=== PATIENT | male | born 1965 | race African-American/Black ===

== ENCOUNTER 2019-11-16 09:51 | Inpatient (IN) | payer OTHER ==
--- NOTE | 2019-11-16 10:12 | BHS.RME ---
Substance Use & Tx History - Substance Use History Alcohol Substance amount: 3 40 oz Frequency of use: Daily Substance route: Oral Date of Last Use: 11/15/19 (started age 16) Nicotine Substance amount: 1 pack Frequency of use: Daily Substance route: Smoking Date of Last Use: 11/16/19 (started age 16) Physical/Psych/Mental Status - Behavior General Behavior: Increased activity (restlessness, agitation) Eye Contact: Normal - Cooperativeness Cooperativeness: Cooperative - Thinking Thought Processes: Tight, Logical, Goal Directed - Physical Health Problems Is patient presently having any pain?: No Does patient presently have any injuries (include location): No Does patient currently have a fever: No Is patient : No CIWA Nausea/Vomitin Muscle Tremors: 4-Moderate,w/Arms Extend Anxiety: 3 Agitation: 3 Paroxysmal Sweats: 1-Minimal Palms Moist Orientation: 1-Uncertain about Date Tacttile Disturbances: 0-None Auditory Disturbances: 0-None Visual Disturbances: 0-None Headache: 0-None Present CIWA-Ar Total Score: 15
--- NOTE | 2019-11-16 10:14 | BHS.RME ---
Substance Use & Tx History - Substance Use History Alcohol Substance amount: 3 40 ozbeers Frequency of use: Daily Substance route: Oral Date of Last Use: 11/15/19 Nicotine Substance amount: 1 pack Frequency of use: Daily Substance route: Smoking Date of Last Use: 11/16/19 Physical/Psych/Mental Status - Behavior General Behavior: Increased activity (restlessness, agitation) Eye Contact: Normal - Thinking Thought Processes: Tight, Logical, Goal Directed - Physical Health Problems Is patient presently having any pain?: No Does patient presently have any injuries (include location): No Does patient currently have a fever: No Is patient : No CIWA Nausea/Vomitin Muscle Tremors: 4-Moderate,w/Arms Extend Anxiety: 3 Agitation: 3 Paroxysmal Sweats: 1-Minimal Palms Moist Orientation: 1-Uncertain about Date Tacttile Disturbances: 0-None Auditory Disturbances: 0-None Visual Disturbances: 0-None Headache: 0-None Present CIWA-Ar Total Score: 15
[2019-11-16 10:30] VITALS: BMI 26.2
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
[2019-11-16] MEDS ORDERED: MAG HYDROX/AL HYDROX/SIMETH 30 ML UNIT-DOSE CUP PO PRN (10:35)
[2019-11-16] MEDS ORDERED: BISMUTH SUBSALICYLATE 524 MG/30 ML UD PO PRN (10:35)
[2019-11-16] MEDS ORDERED: chlordiazePOXIDE HCL 25 MG CAPSULE PO PRN (10:35)
[2019-11-16] MEDS ORDERED: ACETAMINOPHEN 325 MG TABLET (FP) PO PRN ×2 (10:35)
[2019-11-16] MEDS ORDERED: MAGNESIUM CITRATE 300 ML BOTTLE PO PRN (10:35)
[2019-11-16] MEDS ORDERED: MENTHOL/PHENOL 1 EACH UD MM PRN (10:35)
[2019-11-16] MEDS ORDERED: MAGNESIUM HYDROX 2400MG/30ML ORAL SUSPENSION 30 ML CUP PO PRN (10:35)
[2019-11-16] MEDS ORDERED: NICOTINE POLACRILEX 2 MG GUM BUC PRN (10:35)
[2019-11-16] MEDS ORDERED: ONDANSETRON *ODT* 4 MG TABLET SL PRN (10:35)
[2019-11-16] MEDS ORDERED: IBUPROFEN 400 MG TABLET (FP) PO PRN (10:35)
[2019-11-16] MEDS ORDERED: PATIENT'S OWN MEDICATION (NON-FORMULARY) (Lisinopril/Hydrochlorothiazide [Lisinopril-Hctz PO SCH (11:15)
[2019-11-16] MEDS ORDERED: hydrOXYzine PAMOATE 25 MG CAPSULE (FP) PO PRN (12:17)
[2019-11-16] MEDS: NICOTINE 21 MG/24 HOURS TOPICAL PATCH TD SCH (12:45)
[2019-11-16] MEDS: chlordiazePOXIDE HCL 25 MG CAPSULE PO SCH ×3 (12:45→22:34)
--- NOTE | 2019-11-16 12:56 | EKG ---
Test Reason : Blood Pressure : / mmHG Vent. Rate : 091 BPM Atrial Rate : 091 BPM P-R Int : 160 ms QRS Dur : 076 ms QT Int : 386 ms P-R-T Axes : 055 000 042 degrees QTc Int : 474 ms NORMAL SINUS RHYTHM INFERIOR INFARCT , AGE UNDETERMINED ABNORMAL ECG NO PREVIOUS ECGS AVAILABLE Confirmed by MD Carney Edward ([id number]) on 11/16/2019 12:55:51 PM Referred By: Confirmed By:Christopher Carney MD
[2019-11-16] MEDS ORDERED: hydrOXYzine PAMOATE 25 MG CAPSULE (FP) PO SCH (14:00)
[2019-11-16] MEDS: LISINOPRIL 20 MG TABLET PO SCH (14:47)
[2019-11-16] MEDS: HYDROCHLOROTHIAZIDE 12.5 MG CAPSULE (FP) PO SCH (14:47)
[2019-11-16] MEDS: NIFEdipine E.R 60 MG TABLET PO SCH (14:47)
[2019-11-16] MEDS: prednisoLONE ACETATE 1% OPHTH SUSP 5 ML BOTTLE OD SCH (14:51)
[2019-11-16 14:54] LABS: HEMATOCRIT 38.5 % (35.4-49); HEMOGLOBIN 13.1 GM/dL (11.7-16.9); MCH 31.8 pg (25.7-33.7); MCHC 34.1 g/dl (32.0-35.9); MEAN CELL VOLUME 93.3 fl (80-96); MEAN PLT VOLUME 8.2 fl (7.5-11.1); PLATELET COUNT 276 K/MM3 (134-434); RBC 4.13 M/mm3 (4.00-5.60); RDW 12.8 % (11.9-15.9); WHITE BLOOD COUNT 6.3 K/mm3 (4.0-10.0)
[2019-11-16] MEDS: CYCLOPENTOLATE 2% OPHTH SOLN 2 ML BOTTLE OD SCH ×3 (15:05→23:18)
[2019-11-16 15:06] LABS: ALBUMIN 3.9 g/dl (3.4-5.0); BILIRUBIN,TOTAL 0.6 mg/dL (0.2-1); BLOOD UREA NITROGEN 12.4 mg/dL (7-18); CALCIUM 8.8 mg/dL (8.5-10.1); CREATININE 1.3 mg/dL (0.55-1.3); POTASSIUM 3.6 mmol/L (3.5-5.1); TOT PROT 7.6 g/dl (6.4-8.2)
[2019-11-16] MEDS ORDERED: LISINOPRIL 20 MG TABLET PO ONE (20:03)
[2019-11-16] MEDS: ATORVASTATIN CA 10 MG TABLET (FP) PO SCH (22:34)
[2019-11-16] MEDS: MELATONIN 5 MG TABLETS PO SCH (22:34)
[2019-11-16] MEDS: THIAMINE HCL 100 MG TABLET (FP) PO SCH (22:34)
[2019-11-17] MEDS: chlordiazePOXIDE HCL 25 MG CAPSULE PO SCH ×4 (05:28→22:36)
[2019-11-17] MEDS: LISINOPRIL 20 MG TABLET PO SCH (10:34)
[2019-11-17] MEDS: NIFEdipine E.R 60 MG TABLET PO SCH (10:34)
[2019-11-17] MEDS: HYDROCHLOROTHIAZIDE 12.5 MG CAPSULE (FP) PO SCH (10:34)
[2019-11-17] MEDS: CYCLOPENTOLATE 2% OPHTH SOLN 2 ML BOTTLE OD SCH ×4 (10:35→22:36)
[2019-11-17] MEDS: NICOTINE 21 MG/24 HOURS TOPICAL PATCH TD SCH (10:36)
[2019-11-17] MEDS: prednisoLONE ACETATE 1% OPHTH SUSP 5 ML BOTTLE OD SCH (10:36)
[2019-11-17] MEDS: PRENATAL VITAMINS W/ FOLIC ACID TABLET (FP) PO SCH (10:37)
--- NOTE | 2019-11-17 11:59 | PN ---
S CIWA - CIWA Score Nausea/Vomitin-No Nausea/No Vomiting Muscle Tremors: 2 Anxiety: 2 Agitation: 2 Paroxysmal Sweats: 3 Orientation: 0-Oriented Tacttile Disturbances: 0-None Auditory Disturbances: 0-None Visual Disturbances: 0-None Headache: 0-None Present CIWA-Ar Total Score: 9 S Progress Note (SOAP) Subjective: sweats headaches body aches interrupted sleep Objective: 11/17/19 11:59 Vital Signs Temperature 97.3 F L 11/17/19 08:46 Pulse Rate 78 11/17/19 08:46 Respiratory Rate 18 11/17/19 08:46 Blood Pressure 145/78 11/17/19 08:46 O2 Sat by Pulse Oximetry (%) 98 11/17/19 05:22 Laboratory Tests 11/16/19 11/16/19 11/16/19 09:55 09:55 09:55 WBC 6.3 RBC 4.13 Hgb 13.1 Hct 38.5 MCV 93.3 MCH 31.8 MCHC 34.1 RDW 12.8 Plt Count 276 MPV 8.2 Sodium 139 Potassium 3.6 Chloride 104 Carbon Dioxide 28 Anion Gap 7 L BUN 12.4 Creatinine 1.3 Est GFR (CKD-EPI)AfAm 70.69 Est GFR (CKD-EPI)NonAf 60.99 Random Glucose 88 Calcium 8.8 Total Bilirubin 0.6 AST 38 H ALT 36 Alkaline Phosphatase 67 Total Protein 7.6 Albumin 3.9 Syphilis Serology Non-reactive labs noted aaox3 ambulating no acute distress Assessment: 11/17/19 11:59 withdrawals Plan: continue detox
[2019-11-17] MEDS ORDERED: FLU VACCINE (FLULAVAL) PF 60 MCG/0.5 ML SYRINGE 2020-2021 IM ONE (12:00)
[2019-11-17] MEDS ORDERED: prednisoLONE ACETATE 1% OPHTH SUSP 5 ML BOTTLE OD SCH (14:00)
[2019-11-17] MEDS: prednisoLONE ACETATE 1% OPHTH SUSP 5 ML BOTTLE OD PRN ×2 (15:27→22:36)
[2019-11-17] MEDS: THIAMINE HCL 100 MG TABLET (FP) PO SCH (22:35)
[2019-11-17] MEDS: MELATONIN 5 MG TABLETS PO SCH (22:36)
[2019-11-17] MEDS: ATORVASTATIN CA 10 MG TABLET (FP) PO SCH (22:36)
[2019-11-18] MEDS: chlordiazePOXIDE HCL 25 MG CAPSULE PO SCH ×4 (05:39→22:49)
[2019-11-18] MEDS: METHOCARBAMOL 500 MG TABLET PO PRN ×2 (05:39→14:50)
[2019-11-18] MEDS: PRENATAL VITAMINS W/ FOLIC ACID TABLET (FP) PO SCH (10:32)
[2019-11-18] MEDS: CYCLOPENTOLATE 2% OPHTH SOLN 2 ML BOTTLE OD SCH ×4 (10:33→22:50)
[2019-11-18] MEDS: NIFEdipine E.R 60 MG TABLET PO SCH (10:33)
[2019-11-18] MEDS: HYDROCHLOROTHIAZIDE 12.5 MG CAPSULE (FP) PO SCH (10:33)
[2019-11-18] MEDS: LISINOPRIL 20 MG TABLET PO SCH (10:33)
[2019-11-18] MEDS: prednisoLONE ACETATE 1% OPHTH SUSP 5 ML BOTTLE OD PRN ×3 (10:34→22:50)
[2019-11-18] MEDS: NICOTINE 21 MG/24 HOURS TOPICAL PATCH TD SCH (10:34)
--- NOTE | 2019-11-18 12:42 | PN ---
S CIWA - CIWA Score Nausea/Vomitin Muscle Tremors: 2 Anxiety: 2 Agitation: 2 Paroxysmal Sweats: No Perspiration Orientation: 0-Oriented Tacttile Disturbances: 0-None Auditory Disturbances: 0-None Visual Disturbances: 0-None Headache: 1-Very Mild CIWA-Ar Total Score: 9 BHS Progress Note (SOAP) Subjective: alert,irritable,anxious,interrupted sleep,aching pain,nausea,aching pain Objective: 11/18/19 12:52 Vital Signs Temperature 96.9 F L 11/18/19 08:55 Pulse Rate 99 H 11/18/19 08:55 Respiratory Rate 18 11/18/19 08:55 Blood Pressure 128/81 11/18/19 08:55 O2 Sat by Pulse Oximetry (%) 99 11/18/19 08:55 Laboratory Last Values WBC 6.3 K/mm3 (4.0-10.0) 11/16/19 09:55 RBC 4.13 M/mm3 (4.00-5.60) 11/16/19 09:55 Hgb 13.1 GM/dL (11.7-16.9) 11/16/19 09:55 Hct 38.5 % (35.4-49) 11/16/19 09:55 MCV 93.3 fl (80-96) 11/16/19 09:55 MCH 31.8 pg (25.7-33.7) 11/16/19 09:55 MCHC 34.1 g/dl (32.0-35.9) 11/16/19 09:55 RDW 12.8 % (11.9-15.9) 11/16/19 09:55 Plt Count 276 K/MM3 (134-434) 11/16/19 09:55 MPV 8.2 fl (7.5-11.1) 11/16/19 09:55 Sodium 139 mmol/L (136-145) 11/16/19 09:55 Potassium 3.6 mmol/L (3.5-5.1) 11/16/19 09:55 Chloride 104 mmol/L (98-107) 11/16/19 09:55 Carbon Dioxide 28 mmol/L (21-32) 11/16/19 09:55 Anion Gap 7 MMOL/L (8-16) L 09/30/20 09:55 BUN 12.4 mg/dL (7-18) 11/16/19 09:55 Creatinine 1.3 mg/dL (0.55-1.3) 11/16/19 09:55 Est GFR (CKD-EPI)AfAm 70.69 11/16/19 09:55 Est GFR (CKD-EPI)NonAf 60.99 11/16/19 09:55 Random Glucose 88 mg/dL (74-106) 11/16/19 09:55 Calcium 8.8 mg/dL (8.5-10.1) 11/16/19 09:55 Total Bilirubin 0.6 mg/dL (0.2-1) 11/16/19 09:55 AST 38 U/L (15-37) H 11/16/19 09:55 ALT 36 U/L (13-61) 11/16/19 09:55 Alkaline Phosphatase 67 U/L (45-117) 11/16/19 09:55 Total Protein 7.6 g/dl (6.4-8.2) 11/16/19 09:55 Albumin 3.9 g/dl (3.4-5.0) 11/16/19 09:55 Syphilis Serology Non-reactive (NONREACTIVE) 11/16/19 09:55 COVID-19 ([facility]ILL[facility]) Not detected (Not Detected) 11/16/19 13:20 Assessment: 11/18/19 12:58 withdrawal symptom Plan: continue detox detox librium regimen
[2019-11-18] MEDS ORDERED: diphenhydrAMINE HCL 50 MG CAPSULE PO ONE (14:25)
--- NOTE | 2019-11-18 14:33 | PN ---
[facility] Progress Note Note: patient complained of itching ,chronic for months,no rash,no sob,no swelling of face or lip blindness of right eye sitting comfortable in chair use to take medication by his medical provider benadryl 50 mgs po now then 25 mgs po q 6 hrs prn for itching for 48 hrs d/c vistaril close motoring patient requested for the result of covid 19 test,i addressed with the patient that the test is negative ,patient understood closed monitoring continue detox librium regimen
[2019-11-18] MEDS ORDERED: diphenhydrAMINE HCL 25 MG CAPSULE (FP) PO ONE (14:38)
[2019-11-18] MEDS: MELATONIN 5 MG TABLETS PO SCH (22:49)
[2019-11-18] MEDS: THIAMINE HCL 100 MG TABLET (FP) PO SCH (22:49)
[2019-11-18] MEDS: ATORVASTATIN CA 10 MG TABLET (FP) PO SCH (22:49)
[2019-11-18] MEDS: diphenhydrAMINE HCL 25 MG CAPSULE (FP) PO PRN (22:53)
[2019-11-19] MEDS ORDERED: chlordiazePOXIDE HCL 10 MG CAPSULE PO PRN
[2019-11-19] MEDS: chlordiazePOXIDE HCL 10 MG CAPSULE PO SCH ×4 (06:14→22:39)
[2019-11-19] MEDS: NICOTINE 21 MG/24 HOURS TOPICAL PATCH TD SCH (10:34)
[2019-11-19] MEDS: NIFEdipine E.R 60 MG TABLET PO SCH (10:34)
[2019-11-19] MEDS: LISINOPRIL 20 MG TABLET PO SCH (10:34)
[2019-11-19] MEDS: PRENATAL VITAMINS W/ FOLIC ACID TABLET (FP) PO SCH (10:34)
[2019-11-19] MEDS: CYCLOPENTOLATE 2% OPHTH SOLN 2 ML BOTTLE OD SCH ×4 (10:36→22:39)
[2019-11-19] MEDS: prednisoLONE ACETATE 1% OPHTH SUSP 5 ML BOTTLE OD PRN ×3 (10:38→22:39)
[2019-11-19] MEDS: HYDROCHLOROTHIAZIDE 12.5 MG CAPSULE (FP) PO SCH (14:14)
--- NOTE | 2019-11-19 16:48 | PN ---
S CIWA - CIWA Score Nausea/Vomitin (Constipation.) Muscle Tremors: None Anxiety: 2 Agitation: 2 Paroxysmal Sweats: 2 Orientation: 0-Oriented Tacttile Disturbances: 1-Very Mild Itch/Numbness Auditory Disturbances: 0-None Visual Disturbances: 0-None Headache: 0-None Present CIWA-Ar Total Score: 9 BHS Progress Note (SOAP) Subjective: Anxious, Tremors, Constipation (chronic issue). Objective: Patient A & O X 3, Observed Ambulating on Detox Unit Unassisted. In No Acute Distress. 11/19/19 16:47 Vital Signs Temperature 98.2 F 11/19/19 12:38 Pulse Rate 99 H 11/19/19 12:38 Respiratory Rate 18 11/19/19 12:38 Blood Pressure 135/87 11/19/19 12:38 O2 Sat by Pulse Oximetry (%) 100 11/19/19 12:38 Laboratory Tests 11/16/19 11/16/19 11/16/19 09:55 09:55 09:55 WBC 6.3 RBC 4.13 Hgb 13.1 Hct 38.5 MCV 93.3 MCH 31.8 MCHC 34.1 RDW 12.8 Plt Count 276 MPV 8.2 Sodium 139 Potassium 3.6 Chloride 104 Carbon Dioxide 28 Anion Gap 7 L BUN 12.4 Creatinine 1.3 Est GFR (CKD-EPI)AfAm 70.69 Est GFR (CKD-EPI)NonAf 60.99 Random Glucose 88 Calcium 8.8 Total Bilirubin 0.6 AST 38 H ALT 36 Alkaline Phosphatase 67 Total Protein 7.6 Albumin 3.9 Syphilis Serology Non-reactive COVID-19 ([facility]ILLY) 11/16/19 13:20 WBC RBC Hgb Hct MCV MCH MCHC RDW Plt Count MPV Sodium Potassium Chloride Carbon Dioxide Anion Gap BUN Creatinine Est GFR (CKD-EPI)AfAm Est GFR (CKD-EPI)NonAf Random Glucose Calcium Total Bilirubin AST ALT Alkaline Phosphatase Total Protein Albumin Syphilis Serology COVID-19 ([facility]) Not detected Lab Results noted. Assessment: 11/19/19 16:47 WITHDRAWAL SYMPTOMS. Plan: Continue Detox. Increase Daily Oral Water Intake. PRN MOM PO recommended for relief of Constipation.
[2019-11-19] MEDS: diphenhydrAMINE HCL 25 MG CAPSULE (FP) PO PRN (17:28)
[2019-11-19] MEDS: ATORVASTATIN CA 10 MG TABLET (FP) PO SCH (22:39)
[2019-11-19] MEDS: MELATONIN 5 MG TABLETS PO SCH (22:40)
[2019-11-19] MEDS: THIAMINE HCL 100 MG TABLET (FP) PO SCH (22:40)
[2019-11-20] MEDS ORDERED: chlordiazePOXIDE HCL 10 MG CAPSULE PO SCH (05:00)
[2019-11-20] MEDS: prednisoLONE ACETATE 1% OPHTH SUSP 5 ML BOTTLE OD PRN (06:05)
[2019-11-20] MEDS: LISINOPRIL 20 MG TABLET PO SCH (10:44)
[2019-11-20] MEDS: HYDROCHLOROTHIAZIDE 12.5 MG CAPSULE (FP) PO SCH (10:44)
[2019-11-20] MEDS: PRENATAL VITAMINS W/ FOLIC ACID TABLET (FP) PO SCH (10:44)
[2019-11-20] MEDS: NICOTINE 21 MG/24 HOURS TOPICAL PATCH TD SCH (10:44)
[2019-11-20] MEDS: NIFEdipine E.R 60 MG TABLET PO SCH (10:44)
[2019-11-20] MEDS: CYCLOPENTOLATE 2% OPHTH SOLN 2 ML BOTTLE OD SCH (10:45)
[2019-11-20 13:18] VITALS: BP 140/94; PULSE 107; TEMP 97.8
--- NOTE | 2019-11-20 15:14 | DS ---
[facility] Detox Discharge Summary Admission Date: 11/16/19 Discharge Date: 11/20/19 - History Present History: Alcohol Dependence Additional Comments: Patient demanded to leave stating too much chaos on the floor and that he is ready for discharge. Patient denies any withdrawal sxs and said that if he has any problems, he will call 911. Patient said [facility] will [facility]. Patient instructed to follow up with PCP within 1 week. Patient agreed to early discharge instead of leaving AMA. Patient discharged in stable condition. Pertinent Past History: HTN HLD Blind in right eye Alcohol dependence Nicotine dependence - Physical Exam Results Vital Signs: Vital Signs Temperature 97.8 F 11/20/19 12:45 Pulse Rate 107 H 11/20/19 12:45 Respiratory Rate 18 11/20/19 12:45 Blood Pressure 140/94 11/20/19 12:45 O2 Sat by Pulse Oximetry (%) 99 11/20/19 12:45 Pertinent Admission Physical Exam Findings: Withdrawal sxs Laboratory Tests 11/16/19 11/16/19 11/16/19 09:55 09:55 09:55 WBC 6.3 RBC 4.13 Hgb 13.1 Hct 38.5 MCV 93.3 MCH 31.8 MCHC 34.1 RDW 12.8 Plt Count 276 MPV 8.2 Sodium 139 Potassium 3.6 Chloride 104 Carbon Dioxide 28 Anion Gap 7 L BUN 12.4 Creatinine 1.3 Est GFR (CKD-EPI)AfAm 70.69 Est GFR (CKD-EPI)NonAf 60.99 Random Glucose 88 Calcium 8.8 Total Bilirubin 0.6 AST 38 H ALT 36 Alkaline Phosphatase 67 Total Protein 7.6 Albumin 3.9 Syphilis Serology Non-reactive COVID-19 ([facility]ILLY) 11/16/19 13:20 WBC RBC Hgb Hct MCV MCH MCHC RDW Plt Count MPV Sodium Potassium Chloride Carbon Dioxide Anion Gap BUN Creatinine Est GFR (CKD-EPI)AfAm Est GFR (CKD-EPI)NonAf Random Glucose Calcium Total Bilirubin AST ALT Alkaline Phosphatase Total Protein Albumin Syphilis Serology COVID-19 ([facility]ILLY) Not detected Labs reviewed - Treatment Hospital Course: Detox Protocol Followed, Detoxed Safely, Responded well, Discharged Condition Good - Medication Discharge Medications: Ambulatory Orders Cyclopentolate 2% Ophth Soln [Cyclogyl 2% -] 2 ml OD ASDIR 11/16/19 Lisinopril/Hydrochlorothiazide [Lisinopril-Hctz 20-12.5 mg Tab] 1 each PO DAILY 11/16/19 Nifedipine [Procardia Xl] 60 mg PO DAILY 11/16/19 Prednisolone 1% Ophthalmic [Pred Forte 1% -] 5 ml OP DAILY 11/16/19 Simvastatin [Zocor] 20 mg PO HS 11/16/19 - Diagnosis (1) Alcohol dependence with withdrawal, uncomplicated Status: Acute (2) Nicotine dependence Status: Chronic Qualifiers: Nicotine product type: cigarettes Substance use status: uncomplicated Qualified Code(s): F17.210 - Nicotine dependence, cigarettes, uncomplicated (3) Blind right eye Status: Chronic (4) Essential (primary) hypertension Status: Chronic (5) HLD (hyperlipidemia) Status: Chronic - AMA Did Patient Leave Against Medical Advice: No (Follow up with PCP within 1 week)
[2019-11-21] MEDS ORDERED: chlordiazePOXIDE HCL 10 MG CAPSULE PO ONE (05:00)
== END 2019-11-20 02:47 | disposition home or self-care (01) | DRG 775 ==
LOC: YASAS 09:51 → Y6N 10:58
PROVIDERS: ADMIT Allergy & Immunology; ATTEND Allergy & Immunology
PROC: HZ2ZZZZ Detoxification Services for Substance Abuse Treatment (ICD-10-PCS; principal; 2019-11-16)
DX: F10.230 Alcohol dependence with withdrawal, uncomplicated (principal); F17.210 Nicotine dependence, cigarettes, uncomplicated; E78.5 Hyperlipidemia, unspecified; I10 Essential (primary) hypertension; H54.61 Unqualified visual loss, right eye, normal vision left eye; L29.8 Other pruritus
CPT/HCPCS: 36415; 80053; 85027; 86780; 93005; 93010; G0008; Q0162; Q2036; U0003